=== PATIENT | male | born 1975 ===

== ENCOUNTER 2018-06-19 20:10 | Emergency (ER) | payer OTHER ==
[2018-06-19 21:01] LABS: AMPHETAMINES NEGATIVE (NEGATIVE); BARBITUATES NEGATIVE (NEGATIVE); BENZODIAZEPINES NEGATIVE (NEGATIVE); CANNABINOL(THC) NEGATIVE (NEGATIVE); COCAINE(COC) NEGATIVE (NEGATIVE); METHADONE NEGATIVE (NEGATIVE); METHAMPHETAMINES NEGATIVE (NEGATIVE); OPIATES(OPI) NEGATIVE (NEGATIVE); OXYCODONE(OXY) NEGATIVE (NEGATIVE); PROPOXYPHENE(PPX) NEGATIVE (NEGATIVE); TRICYCLIC ANTIDEPRESSANTS NEGATIVE (NEGATIVE)
[2018-06-19 21:32] VITALS: BP 134/78; PULSE 84; RESP 16; TEMP 97.8; O2SAT 98
== END 2018-06-19 21:13 | disposition home or self-care (01) ==
LOC: ED 20:10
DX: Z13.9 Encounter for screening, unspecified (principal)
CPT/HCPCS: 80305; 99281; 99282